=== PATIENT | female | born 1950 | race Caucasian/White ===

== ENCOUNTER → 2017-11-24 | Outpatient (CLI) | payer MEDICARE, MEDICAID | END | disposition home or self-care (01) | LOC: CFH 13:58 | PROVIDERS: ATTEND Nurse Practitioner Family | DX: E28.39 Other primary ovarian failure (principal); Z13.820 Encounter for screening for osteoporosis; N95.9 Unspecified menopausal and perimenopausal disorder; Z87.891 Personal history of nicotine dependence | CPT/HCPCS: 77080; G0297 ==

== ENCOUNTER 2019-11-18 05:45 | Day surgery (SDC) | payer MEDICARE, MEDICAID ==
[2019-11-16 11:54] LABS: BASOPHILS # (AUTO) 0.05 x10^3/uL (0-0.1); BASOPHILS % (AUTO) 1 % (0-1); EOSINOPHILS # (AUTO) 0.05 x10^3/uL (0-0.4); EOSINOPHILS % (AUTO) 1 % (1-7); LYMPHOCYTES # (AUTO) 1.44 x10^3/uL (1-3.4); LYMPHOCYTES % (AUTO) 21 % (22-44); MD NO; MEAN CORPUSCULAR HEMOGLOBIN 31.3 pg (27.0-34.8); MEAN CORPUSCULAR HGB CONC 33.3 g/dL (32.4-35.8); MEAN PLATELET VOLUME 7.9 fL (7.4-10.4); MONOCYTES # (AUTO) 0.69 x10^3/uL (0.2-0.8); MONOCYTES % (AUTO) 10 % (2-9); NEUTROPHILS # (AUTO) 4.69 x10^3/uL (1.8-6.8); NEUTROPHILS % (AUTO) 68 % (42-75); PLATELET COUNT 213 x10^3/uL (130-400); RED BLOOD COUNT 4.71 x10^6/uL (3.82-5.3); RED CELL DISTRIBUTION WIDTH 13.6 % (9.6-15.2)
[2019-11-16 12:03] LABS: PROTHROMBIN TIME 10.6 Seconds (9.6-11.5)
[2019-11-16 12:06] LABS: ANION GAP 5 mmol/L (5-15); CALCIUM 9.5 mg/dL (8.5-10.1); CHLORIDE 107 mmol/L (98-107); CREATININE 0.83 mg/dL (0.55-1.02)
[~2019-11-18] VITALS: Ht 160 cm; Wt 81.0 kg
[~2019-11-18 05:45] MED LIST: ATOR20TA37 PO; CHOL200024 PO; FAMO20TA7 PO; GABA300C10 PO; MV-M1TAB54 PO; ZOLP10TA PO
[2019-11-18] MEDS ORDERED: LACTATED RINGERS 1,000 ML IV SCH (06:03)
[2019-11-18 06:16] VITALS: BP 136/84
[2019-11-18] MEDS ORDERED: FENTANYL PF 250 MCG/5ML ONE (07:15)
[2019-11-18] MEDS ORDERED: PROPOFOL 50 ML ONE (07:15)
[2019-11-18] MEDS ORDERED: MIDAZOLAM 1 MG/ML, 2ML ONE (07:15)
[2019-11-18] MEDS ORDERED: hydrALAzine 20 MG/ML, 1ML IV PRN (08:00)
[2019-11-18] MEDS ORDERED: PROMETHAZINE 25 MG/ML, 1ML IV PRN (08:00)
[2019-11-18] MEDS ORDERED: MORPHINE SULFATE 4 MG/ML, 1ML IVPush PRN (08:00)
[2019-11-18] MEDS ORDERED: DIAZEPAM 5 MG/ML, 2ML IVPush PRN (08:00)
[2019-11-18] MEDS ORDERED: ONDANSETRON 2MG/ML, 2ML IV PRN (08:00)
[2019-11-18] MEDS ORDERED: MEPERIDINE/PF 25MG/ML,1ML IVPush PRN (08:00)
[2019-11-18] MEDS ORDERED: ALBUTEROL SULFATE 2.5 MG/3 ML NPPB PRN (08:00)
[2019-11-18] MEDS ORDERED: DIPHENHYDRAMINE 50 MG/ML, 1ML IVPush PRN (08:00)
[2019-11-18] MEDS ORDERED: FENTANYL PF 100 MCG/2ML IV PRN (08:00)
[2019-11-18] MEDS ORDERED: EPHEDRINE 50 MG/ML, 1ML IM PRN (08:00)
[2019-11-18] MEDS ORDERED: MIDAZOLAM 1 MG/ML, 2ML IV PRN (08:00)
[2019-11-18] MEDS ORDERED: EPHEDRINE 50 MG/ML, 1ML IVPush PRN (08:00)
[2019-11-18] MEDS ORDERED: OXYcodone 5 MG/5 ML ORAL.SOL UDC PO PRN (08:00)
[2019-11-18] MEDS ORDERED: METOPROLOL 1 MG/ML, 5ML IV PRN (08:00)
[2019-11-18] MEDS ORDERED: ONDANSETRON ODT 8 MG PO PRN (08:00)
[2019-11-18] MEDS ORDERED: SUCCINYLCHOLINE 20 MG/ML, 10ML ONE (08:04)
[2019-11-18] MEDS ORDERED: ONDANSETRON 2MG/ML, 2ML ONE (08:04)
[2019-11-18] MEDS ORDERED: ROCURONIUM 10MG/ML,5ML ONE (08:04)
[2019-11-18] MEDS ORDERED: DEXAMETHASONE 4 MG/ML, 1ML ONE (08:04)
[2019-11-18] MEDS ORDERED: PROPOFOL 10 MG/ML, 20ML ONE ×2 (08:14)
[2019-11-18] MEDS ORDERED: ACETAMINOPHEN 650 MG/20.3 ML UDC ONE (09:54)
[2019-11-18] MEDS ORDERED: ACETAMINOPHEN 650 MG/20.3 ML UDC PO PRN (10:00)
== END 2019-11-18 12:00 | disposition home or self-care (01) ==
LOC: OUT 05:45
PROVIDERS: ATTEND Internal Medicine Critical Care Medicine
DX: R59.1 Generalized enlarged lymph nodes (principal); C96.9 Malignant neoplasm of lymphoid, hematopoietic and related tissue, unspecified; F15.90 Other stimulant use, unspecified, uncomplicated; Z79.01 Long term (current) use of anticoagulants; Z72.89 Other problems related to lifestyle; Z87.891 Personal history of nicotine dependence
CPT/HCPCS: 31624; 31652; 36415; 71045; 80048; 85025; 85610; 85730; 87015; 87070; 87116; 87205; 87206; 88112; 88172; 88173; 88305; 88341; 88342; 93005; J0330; J1100; J2250; J2405; J2704; J3010; J7120; 31629